=== PATIENT | male | born 1935 | race Caucasian/White ===

== ENCOUNTER 2017-09-01 02:37 | Emergency (ER) | payer MEDICARE, OTHER ==
[~2017-09-01] VITALS: Ht 167.6 cm; Wt 77.1 kg
[2017-09-01] MEDS ORDERED: TOPROL XL50 MG PO (02:57)
[2017-09-01] MEDS ORDERED: ASPIR 8181 MG PO (02:58)
[2017-09-01] MEDS ORDERED: PLAVIX75 MG PO (02:58)
[2017-09-01] MEDS ORDERED: COZAAR50 MG PO (02:59)
[2017-09-01] MEDS ORDERED: FISH OIL 1,0001 EAC3 PO (02:59)
[2017-09-01] MEDS ORDERED: K-TAB ER20 MEQ PO (03:00)
[2017-09-01] MEDS ORDERED: MULTI VITAMIN1 EACH PO (03:01)
[2017-09-01] MEDS ORDERED: CO Q-10100 MG PO (03:01)
[2017-09-01] MEDS ORDERED: VISION VITAMIN1 EACH PO (03:02)
[2017-09-01] MEDS ORDERED: TYLENOL EXTRA500 MG (03:03)
[2017-09-01] MEDS ORDERED: CRESTOR10 MG PO (03:04)
[2017-09-01] MEDS ORDERED: RANEXA1000 MG PO (03:16)
[2017-09-01] MEDS ORDERED: [UNRECOGNIZED DRUG - OTHER] PO (03:17)
[2017-09-01] MEDS ORDERED: TORSEMIDE20 MG PO (04:17)
--- NOTE | 2017-09-02 20:56 | EKG ---
[facility] [address] [facility] [place] [address] Signed Sinus rhythm with frequent premature ventricular complexes Right bundle branch block Abnormal ECG No previous ECGs available Confirmed by JIMBO MARTINEZ MD ([id number]) on 09/02/2017 8:56:07 PM Electronically Signed By: JIMBO MARTINEZ MD 09/02/172055 PATIENT NAME: ISAEL ORTEGA Electrocardiogram DATE OF : 33 PHYSICIAN: JIMBO MARTINEZ MD REPORT #: [id number] REPORT IS CONFIDENTIAL AND NOT TO BE RELEASED WITHOUT AUTHORIZATION
== END 2017-09-01 04:29 | disposition home or self-care (01) ==
LOC: ED 02:37
DX: I50.9 Heart failure, unspecified (principal); Z88.8 Allergy status to other drugs, medicaments and biological substances; Z88.0 Allergy status to penicillin; Z88.1 Allergy status to other antibiotic agents; Z79.899 Other long term (current) drug therapy; Z79.82 Long term (current) use of aspirin
CPT/HCPCS: 71045; 80053; 83735; 83880; 84484; 85025; 93005; 93010; 96374; 99284